=== PATIENT | female | born 1955 | race Caucasian/White ===

== ENCOUNTER 2019-05-14 11:10 | Emergency (ER) | payer OTHER ==
[2019-05-14 12:09] LABS: Absolute Lymphocytes (CBC) 1.8 K/uL (0.7-4.9); Basophils % 0.6 % (0-1.3); Hematocrit 39.3 % (36.0-45.0); Lymphocytes % 22.2 % (15.3-44.8); MPV 7.9 fL (7.6-11.3); RBC Red Blood Cell Count 4.42 M/uL (3.86-4.86)
--- NOTE | 2019-05-14 12:10 | RAD REPORT ---
EXAM DESCRIPTION: CT - Head Brain Wo Cont - 05/14/2019 11:56 am CLINICAL HISTORY: Headache COMPARISON: None. TECHNIQUE: Computed axial tomography of the head was obtained. IV contrast was not requested. All CT scans are performed using dose optimization technique as appropriate and may include automated exposure control or mA/KV adjustment according to patient size. FINDINGS: An intracranial bleed is not seen . The ventricles are normal in caliber. No extra-axial fluid collection is noted. Fluid within the sinuses/ mastoids is not seen. IMPRESSION: No acute intracranial abnormality is seen. If patient's symptoms persist MRI of the bra in would be recommended.
[2019-05-14 12:27] LABS: BUN Blood Urea Nitrogen 15 mg/dL (7-18); Bicarbonate 33 mmol/L (21-32); Glucose Level 166 mg/dL (74-106); Sodium Level 138 mmol/L (136-145); Troponin (Emerg Dept Use Only) < 0.02 ng/mL (0.0-0.045)
[2019-05-14 12:30] LABS: Potassium 2.9 mmol/L (3.5-5.1)
--- NOTE | 2019-05-14 12:44 | ER ---
Nurse's Notes [facility] Name: Ambar Hilliard Age: 63 yrs Sex: Female : 1955 Arrival Date: 05/14/2019 Time: 11:21 Bed 25 Private MD: Diagnosis: Hypertension Presentation: 05/14 11:15 Presenting complaint: EMS states: pt from home 63 F woke this morning with PEDRAZA and BP tw2 was high, it was 182/99 initially, then 143/78 when we arrived here, pt has hx HTN, dm - takes metformin, losartan, chlorthidone, pt also reports indigestion. Transition of care: patient was not received from another setting of care. Onset of symptoms was May 14, 2019. Risk Assessment: Do you want to hurt yourself or someone else? Patient reports no desire to harm self or others. Initial Sepsis Screen: Does the patient meet any 2 criteria? No. Patient's initial sepsis screen is negative. Does the patient have a suspected source of infection? No. Patient's initial sepsis screen is negative. Care prior to arrival: None. 11:15 Method Of Arrival: [facility]: [facility] tw2 11:15 Acuity: BETTY 3 tw2 11:24 Note pt states "i also havent been sleeping very good, but i woke up earlier with a tw2 headache, then went back to bed but then when i woke up again the headache is still there, then yesterday i noticed i had this indigestion but it went away". Triage Assessment: 11:23 General: Appears in no apparent distress. obese, well groomed, Behavior is calm, tw2 cooperative, appropriate for age. Pain: Complains of pain in headache. GI: Reports indigestion. Historical: - Allergies: 11:28 No Known Allergies; tw2 - Home Meds: 11:28 gabapentin oral [Active]; Metformin Oral [Active]; chlorthidone [Active]; tw2 - PMHx: 11:28 Hypertension; Diabetes - NIDDM; tw2 - Immunization history:: Adult Immunizations. - Coronavirus screen:: The patient has NOT traveled to [place] in the past 14 days. - Social history:: Smoking status: . - Family history:: not pertinent. - Ebola Screening: : Patient denies travel to an Ebola-affected area in the 21 days before illness onset. - Hospitalizations: : No recent hospitalization is reported. Screenin:30 Abuse screen: Denies threats or abuse. Denies injuries from another. Nutritional ca1 screening: No deficits noted. Tuberculosis screening: No symptoms or risk factors identified. Fall Risk IV access (20 points). Assessment: 11:30 General: Appears in no apparent distress. comfortable, Behavior is calm, cooperative, ca1 appropriate for age. 11:30 Pain: Complains of pain in forehead Pain currently is 4 out of 10 on a pain scale. ca1 Neuro: Level of Consciousness is awake, alert, obeys commands, Oriented to person, place, time, situation, Appropriate for age. Cardiovascular: Heart tones S1 S2 present Capillary refill < 3 seconds Patient's skin is warm and dry. Respiratory: Airway is patent Respiratory effort is even, unlabored, Respiratory pattern is regular, symmetrical, Breath sounds are clear bilaterally. GI: Abdomen is round non-distended, Bowel sounds present X 4 quads. Abd is soft and non tender X 4 quads. : No signs and/or symptoms were reported regarding the genitourinary system. EENT: No signs and/or symptoms were reported regarding the EENT system. Derm: Skin is intact, is healthy with good turgor, Skin is pink, warm \\T\\ dry. Musculoskeletal: Circulation, motion, and sensation intact. Capillary refill < 3 seconds. 12:30 Reassessment: Patient appears in no apparent distress at this time. Patient and/or ca1 family updated on plan of care and expected duration. Pain level reassessed. Patient is alert, oriented x 3, equal unlabored respirations, skin warm/dry/pink. Vital Signs: 11:24 Temp 97.9(O); Weight 93.44 kg (R); Height 5 ft. 7 in. (170.18 cm); Pain 4/10; tw2 12:30 BP 126 / 67; Pulse 93; Resp 18 S; Pulse Ox 99% on R/A; ca1 11:24 Body Mass Index 32.26 (93.44 kg, 170.18 cm) tw2 ED Course: 11:20 Arm band placed on. tw2 11:21 Patient arrived in ED. tw2 11:23 Cesar Womack MD is Attending Physician. rn 11:23 Triage completed. tw2 11:24 EKG completed in triage. Results shown to . tw2 11:30 Patient has correct armband on for positive identification. Bed in low position. Call ca1 light in reach. Side rails up X 1. Pulse ox on. NIBP on. Warm blanket given. 11:50 No provider procedures requiring assistance completed. Initial lab(s) drawn, by me, ca1 sent to lab. Inserted saline lock: 22 gauge in left forearm, using aseptic technique. Blood collected. 11:56 Jeanine Mckenzie, RN is Primary Nurse. ca1 12:08 CT Head Brain wo Cont In Process Unspecified. EDMS 13:00 IV discontinued, intact, bleeding controlled, No redness/swelling at site. Pressure ca1 dressing applied. Administered Medications: 12:50 Drug: Potassium Chloride 40 mEq Route: PO; ca1 12:59 Follow up: Response: Medication administered at discharge. ca1 Outcome: 12:43 Discharge ordered by . rn 13:00 Discharged to home ambulatory, with friend. ca1 13:00 Condition: stable 13:00 Discharge instructions given to patient, Instructed on discharge instructions, follow up and referral plans. Demonstrated understanding of instructions, follow-up care. 13:01 Patient left the ED. ca1 Signatures: Dispatcher [employer] EDMS Cesar Womack MD MD rn Wise, Tara, RN RN tw2 Jeanine Mckenzie, RN RN ca1
--- NOTE | 2019-05-14 12:44 | EDPHYS ---
Physician Documentation [facility] Name: Ambar Hilliard Age: 63 yrs Sex: Female : 1955 Arrival Date: 05/14/2019 Time: 11:21 Bed 25 Private MD: ED Physician Cesar Womack HPI: 05/14 11:43 This 63 yrs old Female presents to ER via EMS with complaints of High Blood rn Pressure. 11:43 The patient has elevated blood pressure and discovered this at home. Onset: The rn symptoms/episode began/occurred at an unknown time. Modifying factors:. Severity of symptoms: At its worst the blood pressure was moderate, in the emergency department the blood pressure is improved. The patient has experienced similar episodes in the past. Reports has noticed high blood pressure recently, this morning felt "off", with mild headache, and heart pounding, checked BP, was high, and then when rechecked it went higher. No chest pain/sob/abd pain.. Historical: - Allergies: 11:28 No Known Allergies; tw2 - Home Meds: 11:28 gabapentin oral [Active]; Metformin Oral [Active]; chlorthidone [Active]; tw2 - PMHx: 11:28 Hypertension; Diabetes - NIDDM; tw2 - Immunization history:: Adult Immunizations. - Coronavirus screen:: The patient has NOT traveled to [place] in the past 14 days. - Social history:: Smoking status: . - Family history:: not pertinent. - Ebola Screening: : Patient denies travel to an Ebola-affected area in the 21 days before illness onset. - Hospitalizations: : No recent hospitalization is reported. ROS: 11:43 Constitutional: Negative for fever, chills, and weight loss, Eyes: Negative for injury, rn pain, redness, and discharge, Neck: Negative for injury, pain, and swelling, Cardiovascular: Negative for chest pain, palpitations, and edema, Respiratory: Negative for shortness of breath, cough, wheezing, and pleuritic chest pain, Abdomen/GI: Negative for abdominal pain, nausea, vomiting, diarrhea, and constipation, MS/Extremity: Negative for injury and deformity, Skin: Negative for injury, rash, and discoloration, Neuro: Negative for numbness, tingling, and seizure. Exam: 11:43 Constitutional: This is a well developed, well nourished patient who is awake, alert, rn and in no acute distress. Head/Face: Normocephalic, atraumatic. Eyes: Pupils equal round and reactive to light, extra-ocular motions intact. Lids and lashes normal. Conjunctiva and sclera are non-icteric and not injected. Cornea within normal limits. Periorbital areas with no swelling, redness, or edema. Cardiovascular: Regular rate and rhythm. No pulse deficits. Respiratory: No increased work of breathing, no retractions or nasal flaring. Skin: Warm, dry MS/ Extremity: Pulses equal, no cyanosis. Neurovascular intact. Full, normal range of motion. Equal circumference. Neuro: Awake and alert, GCS 15, oriented to person, place, time, and situation. Cranial nerves II-XII grossly intact. Motor strength 5/5 in all extremities. Sensory grossly intact. Cerebellar exam normal. Vital Signs: 11:24 Temp 97.9(O); Weight 93.44 kg (R); Height 5 ft. 7 in. (170.18 cm); Pain 4/10; tw2 12:30 BP 126 / 67; Pulse 93; Resp 18 S; Pulse Ox 99% on R/A; ca1 11:24 Body Mass Index 32.26 (93.44 kg, 170.18 cm) tw2 MDM: 11:23 Patient medically screened. rn 12:42 Differential diagnosis: hypertensive crisis, Malignant HTN. Data reviewed: vital signs, rn nurses notes, lab test result(s), EKG, radiologic studies, CT scan, and as a result, I will discharge patient. Counseling: I had a detailed discussion with the patient and/or guardian regarding: the historical points, exam findings, and any diagnostic results supporting the discharge/admit diagnosis, lab results, radiology results, the need for outpatient follow up, to return to the emergency department if symptoms worsen or persist or if there are any questions or concerns that arise at home. Response to treatment: the patient's symptoms have markedly improved after treatment, the patient's condition has returned to base line, the patient is now symptom free, and as a result, I will discharge patient. Special discussion: I discussed with the patient/guardian in detail that at this point there is no indication for admission to the hospital. It is understood, however, that if the symptoms persist or worsen the patient needs to return immediately for re-evaluation. Based on the history and exam findings, there is no indication for further emergent testing or inpatient evaluation. I discussed with the patient/guardian the need to see the primary care provider for further evaluation of the symptoms. ED course: BP improved near normal on its own, neg ct head, neg trop, no ischemia on ecg, will dc home with pcp f/u. . 05/14 11:37 Order name: CBC with Diff; Complete Time: 12:20 rn 05/14 11:37 Order name: Basic Metabolic Panel; Complete Time: 12:39 rn 05/14 11:37 Order name: Troponin (emerg Dept Use Only); Complete Time: 12:39 rn 05/14 11:37 Order name: EKG; Complete Time: 11:38 rn 05/14 11:37 Order name: CT Head Brain wo Cont rn 05/14 11:37 Order name: IV Start; Complete Time: 11:54 rn 05/14 11:37 Order name: EKG - Nurse/Tech; Complete Time: 11:44 rn Administered Medications: 12:50 Drug: Potassium Chloride 40 mEq Route: PO; ca1 12:59 Follow up: Response: Medication administered at discharge. ca1 Disposition: 05/14/19 12:43 Discharged to Home. Impression: Hypertension. - Condition is Stable. - Discharge Instructions: Hypertension, Managing Your Hypertension. - Medication Reconciliation Form, Thank You Letter, Antibiotic Education, Prescription Opioid Use form. - Follow up: Private Physician; When: As needed; Reason: Recheck today's complaints, Re-evaluation by your physician. - Problem is new. - Symptoms have improved. Signatures: Dispatcher [employer] EDMS Cesar Womack MD MD rn Wise, Tara, RN RN tw2 Jeanine Mckenzie RN RN ca1 Corrections: (The following items were deleted from the chart) 13:01 12:43 05/14/2019 12:43 Discharged to Home. Impression: Hypertension. Condition is ca1 Stable. Forms are Medication Reconciliation Form, Thank You Letter, Antibiotic Education, Prescription Opioid Use. Follow up: Private Physician; When: As needed; Reason: Recheck today's complaints, Re-evaluation by your physician. Problem is new. Symptoms have improved. rn
[2019-05-14] MEDS ORDERED: POTASSIUM CL SA 10 MEQ TAB PO ONE (12:54)
[2019-05-14 13:57] VITALS: TEMP 97.9
[2019-05-14 13:59] VITALS: BP 126/67; O2SAT 99
--- NOTE | 2019-05-15 11:12 | EKG ---
Test Date: 2019-05-14 Test Time: 11:24:19 [employer] Installation [employer]per: ZAIN MEASUREMENT RESULTS: Intervals: Rate: 96 [place]: 134 QRSD: 82 QT: 362 QTc: 457 [place]: P: 40 [place]: 134 QRS: 19 T: 40 INTERPRETIVE STATEMENTS: Normal sinus rhythm Cannot rule out Anterior infarct, age undetermined Abnormal ECG Compared to ECG 12/17/2014 11:40:06 Myocardial infarct finding now present Electronically Signed On 05-15-19 11:11:15 [employer] SUPERVISOR by Alexander Godoy
== END 2019-05-14 13:01 | disposition home or self-care (01) ==
LOC: ER 11:10
DX: I10 Essential (primary) hypertension (principal); E11.9 Type 2 diabetes mellitus without complications
CPT/HCPCS: 36415; 70450; 80048; 84484; 85025; 93005; 99284